=== PATIENT | male | born 1945 | race Caucasian/White ===

== ENCOUNTER → 2017-02-12 10:03 | Outpatient (CLI) | payer MEDICARE, BC ==
[2015-11-24 09:19] VITALS: BMI 29.2
[~2017-02-12 10:03] MED LIST: CO Q-10200 MG PO; COZAAR50 MG PO; LANTUS INSULIN10 ML SC; NORVASC5 MG PO; POTASSIUM CHLO10 ME1 PO; PRAVASTATIN SOD10 MG PO; PRILOSEC10 MG PO; ROCALTROL0.25 MCG PO; ULTRAM50 MG PO
[2017-02-12 11:34] LABS: MONO NEGATIVE (NEGATIVE)
[2017-02-13 18:10] LABS: EBV - EARLY ANTIGEN AB IGG 9.6 U/mL (0.0-8.9); EBV VIRAL CAPSID AB IGM <36.0 U/mL (0.0-35.9)
== END | disposition home or self-care (01) ==
LOC: D.LAB 10:03
PROVIDERS: Internal Medicine Nephrology
DX: I88.9 Nonspecific lymphadenitis, unspecified (principal)

== ENCOUNTER 2017-02-21 09:37 | Outpatient (CLI) | payer MEDICARE, BC ==
[~2017-02-21] VITALS: Ht 172.7 cm; Wt 83.0 kg
[2017-02-21 10:22] LABS: BASOPHILS 0.2 % (0-2); EOSINOPHILS 3.2 % (0-7); HEMATOCRIT 37.5 % (42.0-54.0); HEMOGLOBIN 12.5 g/dL (13.5-17.5); IMMATURE GRANULOCYTES 0.2 % (0-5); LYMPHOCYTES 20.2 % (15-50); MCH 31.6 pg (26.0-34.0); MCHC 33.3 g/dL (31.0-37.0); MCV 94.7 fL (80.0-100.0); MEAN PLATELET VOLUME 9.8 fL (7.4-10.4); MONOCYTES 11.7 % (2-11); NEUTROPHILS 64.5 % (40-80); PLATELET COUNT 159 10x3/uL (130-400); RBC 3.96 10x6/uL (4.20-6.10); RDW 13.7 % (11.5-14.5); WBC 4.7 10x3/uL (4.8-10.8)
[2017-02-21 10:42] LABS: ALBUMIN 3.6 g/dL (3.4-5.0); ANION GAP 13.5 mmol/L (8-16); BILIRUBIN - TOTAL 0.78 mg/dL (0.2-1.3); CALCIUM 8.6 mg/dL (8.5-10.1); CARBON DIOXIDE 29.1 mmol/L (21.0-32.0); POTASSIUM - SERUM 3.6 mmol/L (3.5-5.1); PROTEIN - SERUM 7.8 g/dL (6.4-8.2)
[2017-02-21 10:47] VITALS: Ht 172.7 cm; Wt 83.0 kg
[2017-02-21 10:58] LABS: INR 0.92 (0.85-1.17); PROTIME 12.2 SECONDS (11.6-15.0)
[2017-02-21] MEDS ORDERED: RENAGEL800 MG PO (11:12)
--- NOTE | 2017-02-21 16:46 | NUR ---
1515 IV DC WITH CATHER TIP INTACT W/O REDNESS OR EDMA
== END 2017-02-21 15:40 | disposition home or self-care (01) ==
LOC: D.CT 09:37 → D.OPS 09:37 → D.CT 13:00 → D.OPS 15:40
PROVIDERS: Radiology Diagnostic Radiology
DX: R59.1 Generalized enlarged lymph nodes (principal); K21.9 Gastro-esophageal reflux disease without esophagitis; N18.6 End stage renal disease; Z01.812 Encounter for preprocedural laboratory examination